=== PATIENT | male | born 1985 | race Caucasian/White ===

== ENCOUNTER 2024-05-03 23:10 | Emergency (ER) | payer BC ==
[~2024-05-03] VITALS: Ht 185.4 cm; Wt 81.6 kg
[2024-05-03 23:30] VITALS: BP 122/88; PULSE 80; RESP 17; TEMP 98.2; O2SAT 97
[2024-05-04] MEDS ORDERED: OFLO5SOL OP (04:04)
[2024-05-04] MEDS ORDERED: NAPH15SO OP (04:11)
== END 2024-05-03 23:30 | disposition left against medical advice (07) ==
LOC: MED 23:10
DX: H57.13 Ocular pain, bilateral (principal); Z53.21 Procedure and treatment not carried out due to patient leaving prior to being seen by health care provider

== ENCOUNTER 2024-05-04 03:30 | Emergency (ER) | payer BC ==
[~2024-05-04] VITALS: Ht 185.4 cm; Wt 81.6 kg
[2024-05-04 03:44] VITALS: BP 152/93; PULSE 80; RESP 16; TEMP 97.6; O2SAT 99
[2024-05-04] MEDS: TETRACAINE HCL/PF 0.5% OPTH 4 ML BTL OP ONE (03:55)
[2024-05-04] MEDS: FLUORESCEIN OPTH STRIP 1 MG OP ONE (03:55)
[2024-05-04 03:56] VITALS: BP 152/93; PULSE 80; RESP 16; TEMP 97.6
[2024-05-04 03:57] VITALS: O2SAT 99
[2024-05-04] MEDS ORDERED: OFLO5SOL OP (04:04)
[2024-05-04] MEDS ORDERED: NAPH15SO OP (04:11)
== END 2024-05-04 04:18 | disposition home or self-care (01) ==
LOC: MED 03:30
DX: H10.13 Acute atopic conjunctivitis, bilateral (principal); Z79.899 Other long term (current) drug therapy
CPT/HCPCS: 99283

== ENCOUNTER 2024-05-04 06:40 | Emergency (ER) | payer BC ==
[~2024-05-04] VITALS: Ht 185.4 cm; Wt 81.6 kg
[~2024-05-04 06:40] MED LIST: NAPH15SO OP; OFLO5SOL OP
[2024-05-04 06:45] VITALS: BP 127/86; PULSE 89; RESP 17; TEMP 97.8; O2SAT 98
[2024-05-04 07:25] VITALS: BP 127/86; PULSE 89; RESP 17; TEMP 97.8; O2SAT 98
== END 2024-05-04 07:26 | disposition home or self-care (01) ==
LOC: MED 06:40
DX: H10.13 Acute atopic conjunctivitis, bilateral (principal); Z79.899 Other long term (current) drug therapy
CPT/HCPCS: 99283